=== PATIENT | male | born 1990 ===

== ENCOUNTER 2018-07-31 07:23 | Observation (INO) | payer OTHER ==
[2018-07-31 07:25] VITALS: BMI 27.3
--- NOTE | 2018-07-31 07:48 | C.PDOC ---
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 Chest pain is intermittent and pressure like, nonradiating, not associated with SOB, nausea/vomiting. Epigastric pain is constant. Patient admits to cocaine use last night at approx 12:00am. He denies any significant PMHx in himself or h/o cardiac disease in immediate family. Time Seen by Provider: 07/31/18 07:32 Chief Complaint (Nursing): Chest Pain History Per: Patient History/Exam Limitations: no limitations Onset/Duration Of Symptoms: Hrs Current Symptoms Are (Timing): Better Severity: Mild Quality: "Pain" Exacerbating Factors: denies: Deep Breathing, Exertion Past Medical History Reviewed: Historical Data, Nursing Documentation, Vital Signs Vital Signs: Last Vital Signs Temp 98.8 F 07/31/18 07:25 Pulse 106 H 07/31/18 07:25 Resp 18 07/31/18 07:25 BP 137/88 07/31/18 07:25 Pulse Ox 98 07/31/18 07:25 - Medical History PMH: No Chronic Diseases Family History: States: No Known Family Hx - Social History Hx Alcohol Use: No Hx Substance Use: Yes - Immunization History Hx Tetanus Toxoid Vaccination: No Hx Influenza Vaccination: No Hx Pneumococcal Vaccination: No Review Of Systems Constitutional: Negative for: Fever, Chills Cardiovascular: Positive for: Chest Pain. Negative for: Palpitations Respiratory: Negative for: Cough, Shortness of Breath Gastrointestinal: Positive for: Abdominal Pain. Negative for: Nausea, Vomiting, Diarrhea Neurological: Negative for: Headache, Dizziness Physical Exam - Physical Exam Appears: Well, Non-toxic, In Acute Distress (in mild pain) Skin: Normal Color, Warm, Dry, No Diaphoretic Eye(s): bilateral: Normal Inspection Oral Mucosa: Moist Chest: Symmetrical Cardiovascular: Rhythm Regular (mildly tachycardic ), No Murmur Respiratory: Normal Breath Sounds, No Rales, No Rhonchi, No Wheezing Gastrointestinal/Abdominal: Bowel Sounds, Soft, Tenderness ((+) mild epigastric TTP, (-) Neves's), No Guarding, No Rebound Extremity: Normal ROM, No Pedal Edema, No Calf Tenderness Pulses: Left Dorsalis Pedis: Normal, Right Dorsalis Pedis: Normal Neurological/Psych: Oriented x3 ED Course And Treatment ECG: Interpreted By Me, Viewed By Me (NSR 89 bpm, normal axis, no acute ST/T wave changes) O2 Sat by Pulse Oximetry: 98 (RA) Pulse Ox Interpretation: Normal Disposition - Disposition Forms: [facility] (Irish)
[2018-07-31 08:17] LABS: BASO # 0.1 K/uL (0.0-0.2); BASO % 0.6 % (0.0-2.0); EOS % 0.1 % (0.0-4.0); HEMOGLOBIN 15.4 g/dL (12.0-18.0); LYMPH # 1.2 K/uL (1.0-4.3); MEAN CELL VOLUME 88.1 fL (80.0-94.0); MEAN CORPUSCULAR HEMOGLOBIN 30.6 pg (27.0-31.0); MEAN CORPUSCULAR HGB CONC 34.7 g/dL (33.0-37.0); MEAN PLATELET VOLUME 8.1 fL (7.2-11.7); MONO # 0.7 K/uL (0.0-0.8); MONO % 7.4 % (0.0-10.0); NEUT # 6.9 K/uL (1.8-7.0); NEUT % 77.9 % (50.0-75.0); RBC 5.05 Mil/uL (4.40-5.90); RED CELL DISTRIBUTION WIDTH 13.3 % (11.5-14.5); WHITE BLOOD COUNT 8.9 K/uL (4.8-10.8)
[2018-07-31 08:30] LABS: INR 1.1; PROTHROMBIN TIME 12.4 SECONDS (9.7-12.2)
[2018-07-31 08:31] LABS: ALB/GLOB RATIO 1.6 (1.0-2.1); ALBUMIN 4.7 g/dL (3.5-5.0); ALT/SGPT 27 U/L (21-72); AST/SGOT 24 U/L (17-59); BLOOD UREA NITROGEN 10 mg/dL (9-20); CALCIUM 9.6 mg/dl (8.6-10.4); GFR NON-AFRICAN AMERICAN > 60
[2018-07-31 08:42] LABS: CK-MB 0.46 ng/mL (0.0-3.38)
[2018-07-31 09:43] LABS: URINE BILIRUBIN NEGATIVE (NEGATIVE); URINE BLOOD NEGATIVE (NEGATIVE); URINE CLARITY Clear (Clear); URINE COLOR Yellow (YELLOW); URINE GLUCOSE (UA) NORMAL (Normal); URINE LEUKOCYTE ESTERASE NEG Leu/uL (Negative); URINE PROTEIN NEGATIVE (NEGATIVE); URINE UROBILINOGEN NORMAL mg/dL (0.2-1.0)
[2018-07-31 09:44] LABS: LIPASE 183 U/L (23-300)
[2018-07-31 09:53] LABS: B-TYPE NATRIURETIC PEPTIDE 37.8 pg/mL (0-450)
[2018-07-31 09:58] LABS: BARBITURATES, UR NEGATIVE (NEGATIVE); BENZODIAZEPINES, UR NEGATIVE (NEGATIVE); OPIATES, UR NEGATIVE (NEGATIVE); PHENCYCLIDINE, UR NEGATIVE (NEGATIVE)
--- NOTE | 2018-07-31 09:58 | CP.PCM.HP ---
<Valencia León - Last Filed: 07/31/18 12:06> History of Present Illness - History of Present Illness History of Present Illness: PGY-1 Valencia León D.O. H&P for Dr. Mcdermott's service: Patient is a 28 yo male with no known PMH who presents with chest pressure and epigastric pain after using cocaine. Patient states that he uses cocaine almost daily after work. He used it around midnight. Then around 5 AM, he felt chest pressure and stomach pain. He took a shower, and the pain subsided somewhat. He then walked around but the pain persisted, so he walked to the ED. He says after receiving medicine in the ED, the chest pressure resolved. Currently, he still has epigastric pain 4/10, increased with palpation. Abdominal pain is not worsened by food. Patient states this has ever happened before. Denies diaphoresis, palpitations, SOB, N/V/D/C. He denies drinking alcohol last night. PMH: denies PSH: denies Meds: denies All: NKA FH: denies history of heart disease, HTN, HLD, drug use SH: cocaine almost daily for 2-3 months, 3 cigarettes/day x3 years, 6 beers/week, lives with a friend, works as a cook, has 2 children (6, 9 yo) PMD: none Present on Admission - Present on Admission Any Indicators Present on Admission: No History of DVT/PE: No History of Uncontrolled Diabetes: No Urinary Catheter: No Decubitus Ulcer Present: No History Surgical Site Infection Following: None Review of Systems - Constitutional Constitutional: absent: Chills, Fever, Headache, Weakness - EENT Eyes: absent: Change in Vision Ears: absent: Dizziness Nose/Mouth/Throat: absent: Nasal Congestion, Sore Throat - Cardiovascular Cardiovascular: absent: Chest Pain, Diaphoresis, Dyspnea, Palpitations - Respiratory Respiratory: absent: Cough, Dyspnea - Gastrointestinal Gastrointestinal: Abdominal Pain. absent: Constipation, Diarrhea, Nausea, Vomiting - Genitourinary Genitourinary: absent: Dysuria, Hematuria - Musculoskeletal Musculoskeletal: absent: Muscle Weakness, Numbness, Tingling - Integumentary Integumentary: absent: Lesions, Pruritus, Rash - Neurological Neurological: absent: Dizziness, Focal Weakness, Paresthesias, Syncope, Tremor, Vertigo - Psychiatric Psychiatric: absent: Anxiety, Depression, Suicidal Ideation - Endocrine Endocrine: absent: Fatigue, Polydipsia, Polyuria - Hematologic/Lymphatic Hematologic: absent: Easy Bleeding, Easy Bruising, Lymphadenopathy Past Patient History - Past Social History Smoking Status: Heavy Smoker > 10 Cigarettes Daily - PSYCHIATRIC Hx Substance Use: Yes - SURGICAL HISTORY Hx Surgeries: No - ANESTHESIA Hx Anesthesia: No Meds Allergies/Adverse Reactions: Allergies Allergy/AdvReac Type Severity Reaction Status Date / Time No Known Allergies Allergy Verified 07/31/18 07:25 Physical Exam - Constitutional Appears: Non-toxic, No Acute Distress - Head Exam Head Exam: ATRAUMATIC, NORMAL INSPECTION - Eye Exam Eye Exam: EOMI, Normal appearance, PERRL - ENT Exam ENT Exam: Mucous Membranes Dry - Neck Exam Neck exam: Positive for: Normal Inspection - Respiratory Exam Respiratory Exam: Clear to Auscultation Bilateral, NORMAL BREATHING PATTERN. absent: Respiratory Distress - Cardiovascular Exam Cardiovascular Exam: RRR, +S1, +S2. absent: Systolic Murmur - GI/Abdominal Exam GI & Abdominal Exam: Normal Bowel Sounds, Soft, Tenderness (epigastric). absent: Distended, Rebound Additional comments: negative Neves's sign - Extremities Exam Extremities exam: Positive for: normal inspection, pedal pulses present. Negative for: pedal edema, tenderness - Back Exam Back exam: NORMAL INSPECTION. absent: tenderness - Neurological Exam Neurological exam: Alert, CN II-XII Intact, Oriented x3 - Psychiatric Exam Psychiatric exam: Normal Affect, Normal Mood - Skin Skin Exam: Diaphoretic, Normal Color, Warm Results - Vital Signs Recent Vital Signs: Last Vital Signs Temp 98.8 F 07/31/18 07:25 Pulse 83 07/31/18 08:40 Resp 15 07/31/18 08:40 BP 130/76 07/31/18 08:40 Pulse Ox 98 07/31/18 08:40 - Labs Result Diagrams: 07/31/18 08:14 07/31/18 08:14 Labs: Laboratory Results - last 24 hr 07/31/18 07/31/18 07/31/18 08:14 08:14 08:14 WBC 8.9 RBC 5.05 Hgb 15.4 Hct 44.5 MCV 88.1 MCH 30.6 MCHC 34.7 RDW 13.3 Plt Count 263 MPV 8.1 Neut % (Auto) 77.9 H Lymph % (Auto) 14.0 L [place] % (Auto) 7.4 Eos % (Auto) 0.1 Baso % (Auto) 0.6 Neut # (Auto) 6.9 Lymph # (Auto) 1.2 [place] # (Auto) 0.7 Eos # (Auto) 0.0 Baso # (Auto) 0.1 PT 12.4 H INR 1.1 APTT 34 Sodium 139 Potassium 3.9 Chloride 101 Carbon Dioxide 28 Anion Gap 14 BUN 10 Creatinine 0.9 Est GFR ( Amer) > 60 Est GFR (Non-Af Amer) > 60 Random Glucose 114 H Calcium 9.6 Total Bilirubin 0.9 AST 24 ALT 27 Alkaline Phosphatase 88 Total Creatine Kinase 70 CK-MB (Mass) 0.46 Troponin I < 0.0120 NT-Pro-B Natriuret Pep 37.8 Total Protein 7.6 Albumin 4.7 Globulin 2.9 Albumin/Globulin Ratio 1.6 Lipase 183 Urine Color Urine Clarity Urine pH Ur Specific [place] Urine Protein Urine Glucose (UA) Urine Ketones Urine Blood Urine Nitrate Urine Bilirubin Urine Urobilinogen Ur Leukocyte Esterase Urine WBC (Auto) Urine RBC (Auto) Alcohol, Quantitative < 10 07/31/18 09:28 WBC RBC Hgb Hct MCV MCH MCHC RDW Plt Count MPV Neut % (Auto) Lymph % (Auto) [place] % (Auto) Eos % (Auto) Baso % (Auto) Neut # (Auto) Lymph # (Auto) [place] # (Auto) Eos # (Auto) Baso # (Auto) PT INR APTT Sodium Potassium Chloride Carbon Dioxide Anion Gap BUN Creatinine Est GFR ( Amer) Est GFR (Non-Af Amer) Random Glucose Calcium Total Bilirubin AST ALT Alkaline Phosphatase Total Creatine Kinase CK-MB (Mass) Troponin I NT-Pro-B Natriuret Pep Total Protein Albumin Globulin Albumin/Globulin Ratio Lipase Urine Color Yellow Urine Clarity Clear Urine pH 6.0 Ur Specific [place] 1.010 Urine Protein Negative Urine Glucose (UA) Normal Urine Ketones Negative Urine Blood Negative Urine Nitrate Negative Urine Bilirubin Negative Urine Urobilinogen Normal Ur Leukocyte Esterase Neg Urine WBC (Auto) 1 Urine RBC (Auto) 1 Alcohol, Quantitative Assessment & Plan - Assessment and Plan (Free Text) Assessment: Patient is a 28 yo male with no known PMH who presents with chest pressure and epigastric pain after using cocaine. Initially trop negative but EKG showed early repolarization. Will monitor on telemetry. Plan: Chest pain- suspect 2/2 cocaine use - Received ASA, NG, Ativan, Pepcid in ED - EKG: early repolarization- trend Q6H - LANCE negative x1- trend Q6H - Monitor on telemetry - Vitals Q4H - A1c pending - BNP pending - TSH, free T4 pending - Lipase pending - Lipid panel in AM Polysubstance use disorder- cocaine, alcohol, tobacco - UDS positive for cocaine, BAL <10 - Discussed risks associated with each substance - Highly encouraged cessation - Referral to [facility] daily - [facility] referral Ppx: VTE: SCDs, ambulatory GI: not indicated Diet: Heart healthy, decaf Case discussed with attending, Dr. Mcdermott. <Shruti Mcdermott V - Last Filed: 07/31/18 19:03> Results - Vital Signs Recent Vital Signs: Last Vital Signs Temp 97.9 F 07/31/18 15:50 Pulse 71 07/31/18 15:50 Resp 18 07/31/18 15:50 BP 123/74 07/31/18 15:50 Pulse Ox 97 07/31/18 15:50 - Labs Result Diagrams: 07/31/18 08:14 07/31/18 08:14 Labs: Laboratory Results - last 24 hr 07/31/18 07/31/18 07/31/18 08:14 08:14 08:14 WBC 8.9 RBC 5.05 Hgb 15.4 Hct 44.5 MCV 88.1 MCH 30.6 MCHC 34.7 RDW 13.3 Plt Count 263 MPV 8.1 Neut % (Auto) 77.9 H Lymph % (Auto) 14.0 L [place] % (Auto) 7.4 Eos % (Auto) 0.1 Baso % (Auto) 0.6 Neut # (Auto) 6.9 Lymph # (Auto) 1.2 [place] # (Auto) 0.7 Eos # (Auto) 0.0 Baso # (Auto) 0.1 PT 12.4 H INR 1.1 APTT 34 D-Dimer, Quantitative Sodium 139 Potassium 3.9 Chloride 101 Carbon Dioxide 28 Anion Gap 14 BUN 10 Creatinine 0.9 Est GFR ( Amer) > 60 Est GFR (Non-Af Amer) > 60 Random Glucose 114 H Hemoglobin A1c Calcium 9.6 Total Bilirubin 0.9 AST 24 ALT 27 Alkaline Phosphatase 88 Total Creatine Kinase 70 CK-MB (Mass) 0.46 Troponin I < 0.0120 NT-Pro-B Natriuret Pep 37.8 Total Protein 7.6 Albumin 4.7 Globulin 2.9 Albumin/Globulin Ratio 1.6 Lipase 183 Free T4 TSH 3rd Generation Urine Color Urine Clarity Urine pH Ur Specific [place] Urine Protein Urine Glucose (UA) Urine Ketones Urine Blood Urine Nitrate Urine Bilirubin Urine Urobilinogen Ur Leukocyte Esterase Urine WBC (Auto) Urine RBC (Auto) Urine Opiates Screen Urine Methadone Screen Ur Barbiturates Screen Ur Phencyclidine Scrn Ur Amphetamines Screen U Benzodiazepines Scrn U Oth Cocaine Metabols U Cannabinoids Screen Alcohol, Quantitative < 10 07/31/18 07/31/18 07/31/18 09:28 09:28 10:12 WBC RBC Hgb Hct MCV MCH MCHC RDW Plt Count MPV Neut % (Auto) Lymph % (Auto) [place] % (Auto) Eos % (Auto) Baso % (Auto) Neut # (Auto) Lymph # (Auto) [place] # (Auto) Eos # (Auto) Baso # (Auto) PT INR APTT D-Dimer, Quantitative < 200 Sodium Potassium Chloride Carbon Dioxide Anion Gap BUN Creatinine Est GFR ( Amer) Est GFR (Non-Af Amer) Random Glucose Hemoglobin A1c Calcium Total Bilirubin AST ALT Alkaline Phosphatase Total Creatine Kinase CK-MB (Mass) Troponin I NT-Pro-B Natriuret Pep Total Protein Albumin Globulin Albumin/Globulin Ratio Lipase Free T4 TSH 3rd Generation Urine Color Yellow Urine Clarity Clear Urine pH 6.0 Ur Specific [place] 1.010 Urine Protein Negative Urine Glucose (UA) Normal Urine Ketones Negative Urine Blood Negative Urine Nitrate Negative Urine Bilirubin Negative Urine Urobilinogen Normal Ur Leukocyte Esterase Neg Urine WBC (Auto) 1 Urine RBC (Auto) 1 Urine Opiates Screen Negative Urine Methadone Screen Negative Ur Barbiturates Screen Negative Ur Phencyclidine Scrn Negative Ur Amphetamines Screen Negative U Benzodiazepines Scrn Negative U Oth Cocaine Metabols Positive H U Cannabinoids Screen Negative Alcohol, Quantitative 07/31/18 07/31/18 07/31/18 11:52 11:52 12:12 WBC RBC Hgb Hct MCV MCH MCHC RDW Plt Count MPV Neut % (Auto) Lymph % (Auto) [place] % (Auto) Eos % (Auto) Baso % (Auto) Neut # (Auto) Lymph # (Auto) [place] # (Auto) Eos # (Auto) Baso # (Auto) PT INR APTT D-Dimer, Quantitative Sodium Potassium Chloride Carbon Dioxide Anion Gap BUN Creatinine Est GFR ( Amer) Est GFR (Non-Af Amer) Random Glucose Hemoglobin A1c 5.5 Calcium Total Bilirubin AST ALT Alkaline Phosphatase Total Creatine Kinase CK-MB (Mass) Troponin I NT-Pro-B Natriuret Pep Total Protein Albumin Globulin Albumin/Globulin Ratio Lipase Free T4 0.90 TSH 3rd Generation 1.47 Urine Color Urine Clarity Urine pH Ur Specific [place] Urine Protein Urine Glucose (UA) Urine Ketones Urine Blood Urine Nitrate Urine Bilirubin Urine Urobilinogen Ur Leukocyte Esterase Urine WBC (Auto) Urine RBC (Auto) Urine Opiates Screen Urine Methadone Screen Ur Barbiturates Screen Ur Phencyclidine Scrn Ur Amphetamines Screen U Benzodiazepines Scrn U Oth Cocaine Metabols U Cannabinoids Screen Alcohol, Quantitative 07/31/18 15:58 WBC RBC Hgb Hct MCV MCH MCHC RDW Plt Count MPV Neut % (Auto) Lymph % (Auto) [place] % (Auto) Eos % (Auto) Baso % (Auto) Neut # (Auto) Lymph # (Auto) [place] # (Auto) Eos # (Auto) Baso # (Auto) PT INR APTT D-Dimer, Quantitative Sodium Potassium Chloride Carbon Dioxide Anion Gap BUN Creatinine Est GFR ( Amer) Est GFR (Non-Af Amer) Random Glucose Hemoglobin A1c Calcium Total Bilirubin AST ALT Alkaline Phosphatase Total Creatine Kinase 56 CK-MB (Mass) 0.28 Troponin I < 0.0120 NT-Pro-B Natriuret Pep Total Protein Albumin Globulin Albumin/Globulin Ratio Lipase Free T4 TSH 3rd Generation Urine Color Urine Clarity Urine pH Ur Specific [place] Urine Protein Urine Glucose (UA) Urine Ketones Urine Blood Urine Nitrate Urine Bilirubin Urine Urobilinogen Ur Leukocyte Esterase Urine WBC (Auto) Urine RBC (Auto) Urine Opiates Screen Urine Methadone Screen Ur Barbiturates Screen Ur Phencyclidine Scrn Ur Amphetamines Screen U Benzodiazepines Scrn U Oth Cocaine Metabols U Cannabinoids Screen Alcohol, Quantitative Attending/Attestation - Attestation I have personally seen and examined this patient.: Yes I have fully participated in the care of the patient.: Yes I have reviewed all pertinent clinical information: Yes Notes (Text): This is a 28-year-old male with no prior medical history comes in for chest pain noted last use of cocaine about 1 AM this morning. Patient noted to be using cocaine for the past 3 months. 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 Chest pain at bedside has resolved in the ED received both aspirin, nitro sublingual as well as Pepcid for epigastric pain. Patient does not appear in any acute distress S1-S2 present regular rate belly is benign. Patient appears clinically dehydrated. We will monitor patient on telemetry follow cardiac enzymes check for any cardiac risk factors including A1c TSH disorder if abdominal pain worsens may consider further imaging. We will give some IV hydration over 24 hours if no acute changes possible discharge in the morning. 1. Chest pain Assessment/plan Monitor on telemetry Cardiac enzymes and EKG times 8 hours apart x3 sets Check A1c, TSH, UDS 2. Cocaine abuse Assessment/plan Counseled bedside Patient is aware of cardiac arrhythmia and cardiac arrest following cocaine use 3. Tobacco abuse Assessment/plan Counseled bedside Sensation counts including premature aging aging cancer risk 4. Prophylactic measure Patient is amatory does not want chemical anticoagulation and Pepcid 20 mg p.o. twice daily GI prophylaxis As 100 cc/h for 24 hours
--- NOTE | 2018-07-31 10:40 | RAD ---
Date of service: 07/31/2018 PROCEDURE: CHEST RADIOGRAPH, 1 VIEW HISTORY: cp COMPARISON: None available. FINDINGS: LUNGS: Clear. PLEURA: No pneumothorax or pleural fluid seen. CARDIOVASCULAR: No aortic atherosclerotic calcification present. Normal. OSSEOUS STRUCTURES: No significant abnormalities. VISUALIZED UPPER ABDOMEN: Normal. OTHER FINDINGS: None. IMPRESSION: No active disease.
[2018-07-31] MEDS ORDERED: Sodium Chloride 0.9% 1,000 ML IV SCH ×2 (12:15→19:00)
[2018-07-31] MEDS ORDERED: Sodium Chloride 0.9% 1,000 ML ONE (12:41)
[2018-07-31 16:25] LABS: CK-MB 0.28 ng/mL (0.0-3.38)
[2018-07-31 21:41] LABS: CK-MB 0.25 ng/mL (0.0-3.38)
[2018-08-01 06:42] LABS: ALB/GLOB RATIO 1.5 (1.0-2.1); ALBUMIN 4.2 g/dL (3.5-5.0); ALT/SGPT 28 U/L (21-72); AST/SGOT 19 U/L (17-59); BLOOD UREA NITROGEN 9 mg/dL (9-20); CALCIUM 9.4 mg/dl (8.6-10.4); GFR NON-AFRICAN AMERICAN > 60; HDL CHOLESTEROL 41 mg/dL (30-70)
[2018-08-01 06:45] LABS: BASO # 0.1 K/uL (0.0-0.2); BASO % 0.7 % (0.0-2.0); EOS # 0.2 K/uL (0.0-0.7); EOS % 3.5 % (0.0-4.0); HEMOGLOBIN 15.9 g/dL (12.0-18.0); LYMPH # 2.3 K/uL (1.0-4.3); LYMPH % 32.9 % (20.0-40.0); MEAN CELL VOLUME 90.1 fL (80.0-94.0); MEAN CORPUSCULAR HEMOGLOBIN 29.8 pg (27.0-31.0); MEAN PLATELET VOLUME 8.1 fL (7.2-11.7); MONO # 0.6 K/uL (0.0-0.8); NEUT # 3.9 K/uL (1.8-7.0); NEUT % 54.9 % (50.0-75.0); NRBC % 0.1 % (0.0-2.0); RBC 5.34 Mil/uL (4.40-5.90); RED CELL DISTRIBUTION WIDTH 13.6 % (11.5-14.5); WHITE BLOOD COUNT 7.1 K/uL (4.8-10.8)
--- NOTE | 2018-08-01 06:47 | CP.PCM.DIS ---
<Valencia León - Last Filed: 08/01/18 08:17> Provider - Provider Date of Admission: 07/31/18 09:22 Attending physician: Shruti Mcdermott DO Primary care physician: none Consults: 07/31/18 12:09 Pastoral Care Referral Routine Comment: Physician Instructions: Reason For Exam: drug use, needs guidance Time Spent in preparation of Discharge (in minutes): 45 Diagnosis - Discharge Diagnosis (1) Chest pain not due to acute coronary syndrome Status: Resolved Priority: High (2) Cocaine use disorder Status: Chronic Priority: High (3) Alcohol use disorder Status: Chronic Priority: Medium (4) Tobacco use disorder Status: Chronic Priority: Medium Hospital Course - Lab Results Lab Results: Most Recent Lab Values WBC 8.9 K/uL (4.8-10.8) 07/31/18 08:14 RBC 5.05 Mil/uL (4.40-5.90) 07/31/18 08:14 Hgb 15.4 g/dL (12.0-18.0) 07/31/18 08:14 Hct 44.5 % (35.0-51.0) 07/31/18 08:14 MCV 88.1 fL (80.0-94.0) 07/31/18 08:14 MCH 30.6 pg (27.0-31.0) 07/31/18 08:14 MCHC 34.7 g/dL (33.0-37.0) 07/31/18 08:14 RDW 13.3 % (11.5-14.5) 07/31/18 08:14 Plt Count 263 K/uL (130-400) 07/31/18 08:14 MPV 8.1 fL (7.2-11.7) 07/31/18 08:14 Neut % (Auto) 77.9 % (50.0-75.0) H 07/31/18 08:14 Lymph % (Auto) 14.0 % (20.0-40.0) L 07/31/18 08:14 [place] % (Auto) 7.4 % (0.0-10.0) 07/31/18 08:14 Eos % (Auto) 0.1 % (0.0-4.0) 07/31/18 08:14 Baso % (Auto) 0.6 % (0.0-2.0) 07/31/18 08:14 Neut # (Auto) 6.9 K/uL (1.8-7.0) 07/31/18 08:14 Lymph # (Auto) 1.2 K/uL (1.0-4.3) 07/31/18 08:14 [place] # (Auto) 0.7 K/uL (0.0-0.8) 07/31/18 08:14 Eos # (Auto) 0.0 K/uL (0.0-0.7) 07/31/18 08:14 Baso # (Auto) 0.1 K/uL (0.0-0.2) 07/31/18 08:14 PT 12.4 SECONDS (9.7-12.2) H 07/31/18 08:14 INR 1.1 07/31/18 08:14 APTT 34 SECONDS (21-34) 07/31/18 08:14 D-Dimer, Quantitative < 200 ng/mlDDU (0-243) 07/31/18 10:12 Sodium 139 mmol/L (132-148) 08/01/18 06:22 Potassium 4.3 mmol/L (3.6-5.2) 08/01/18 06:22 Chloride 103 mmol/L (98-107) 08/01/18 06:22 Carbon Dioxide 32 mmol/L (22-30) H 08/01/18 06:22 Anion Gap 9 (10-20) L 08/01/18 06:22 BUN 9 mg/dL (9-20) 08/01/18 06:22 Creatinine 1.2 mg/dL (0.8-1.5) 08/01/18 06:22 Est GFR ( Amer) > 60 08/01/18 06:22 Est GFR (Non-Af Amer) > 60 08/01/18 06:22 Random Glucose 90 mg/dL (75-110) D 08/01/18 06:22 Hemoglobin A1c 5.5 % (4.2-6.5) 07/31/18 11:52 Calcium 9.4 mg/dl (8.6-10.4) 08/01/18 06:22 Phosphorus 4.2 mg/dL (2.5-4.5) 08/01/18 06:22 Magnesium 2.3 mg/dL (1.6-2.3) 08/01/18 06:22 Total Bilirubin 1.8 mg/dL (0.2-1.3) H 08/01/18 06:22 AST 19 U/L (17-59) 08/01/18 06:22 ALT 28 U/L (21-72) 08/01/18 06:22 Alkaline Phosphatase 68 U/L (38-126) 08/01/18 06:22 Total Creatine Kinase 55 U/L (55-170) 07/31/18 21:13 CK-MB (Mass) 0.25 ng/mL (0.0-3.38) 07/31/18 21:13 Troponin I < 0.0120 ng/mL (0.00-0.120) 07/31/18 21:13 NT-Pro-B Natriuret Pep 37.8 pg/mL (0-450) 07/31/18 08:14 Total Protein 7.0 g/dL (6.3-8.3) 08/01/18 06:22 Albumin 4.2 g/dL (3.5-5.0) 08/01/18 06:22 Globulin 2.8 gm/dL (2.2-3.9) 08/01/18 06:22 Albumin/Globulin Ratio 1.5 (1.0-2.1) 08/01/18 06:22 Triglycerides 97 mg/dL (0-149) 08/01/18 06:22 Cholesterol 196 mg/dL (0-199) 08/01/18 06:22 HDL Cholesterol 41 mg/dL (30-70) 08/01/18 06:22 Lipase 183 U/L (23-300) 07/31/18 08:14 Free T4 0.90 ng/dL (0.78-2.19) 07/31/18 11:52 TSH 3rd Generation 1.47 mIU/L (0.46-4.68) 07/31/18 12:12 Urine Color Yellow (YELLOW) 07/31/18 09:28 Urine Clarity Clear (Clear) 07/31/18 09:28 Urine pH 6.0 (5.0-8.0) 07/31/18 09:28 Ur Specific [place] 1.010 (1.003-1.030) 03/31/19 09:28 Urine Protein Negative mg/dL (NEGATIVE) 07/31/18 09:28 Urine Glucose (UA) Normal mg/dL (Normal) 07/31/18 09:28 Urine Ketones Negative mg/dL (NEGATIVE) 07/31/18 09:28 Urine Blood Negative (NEGATIVE) 07/31/18 09:28 Urine Nitrate Negative (NEGATIVE) 07/31/18 09:28 Urine Bilirubin Negative (NEGATIVE) 07/31/18 09:28 Urine Urobilinogen Normal mg/dL (0.2-1.0) 07/31/18 09:28 Ur Leukocyte Esterase Neg [place]/uL (Negative) 07/31/18 09:28 Urine WBC (Auto) 1 /hpf (0-5) 07/31/18 09:28 Urine RBC (Auto) 1 /hpf (0-3) 07/31/18 09:28 Urine Opiates Screen Negative (NEGATIVE) 07/31/18 09:28 Urine Methadone Screen Negative (NEGATIVE) 07/31/18 09:28 Ur Barbiturates Screen Negative (NEGATIVE) 07/31/18 09:28 Ur Phencyclidine Scrn Negative (NEGATIVE) 07/31/18 09:28 Ur Amphetamines Screen Negative (NEGATIVE) 07/31/18 09:28 U Benzodiazepines Scrn Negative (NEGATIVE) 07/31/18 09:28 U Oth Cocaine Metabols Positive (NEGATIVE) H 07/31/18 09:28 U Cannabinoids Screen Negative (NEGATIVE) 07/31/18 09:28 Alcohol, Quantitative < 10 mg/dl (0-10) 07/31/18 08:14 - Hospital Course Hospital Course: Patient is a 28 yo male with no known PMH who presents with chest pressure and epigastric pain after using cocaine. Patient states that he uses cocaine almost daily after work. He used it around midnight. Then around 5 AM, he felt chest pressure and stomach pain. He took a shower, and the pain subsided somewhat. He then walked around but the pain persisted, so he walked to the ED. He says after receiving medicine in the ED, the chest pressure resolved. Currently, he still has epigastric pain 4/10, increased with palpation. Abdominal pain is not worsened by food. Patient states this has ever happened before. Denies diaphoresis, palpitations, SOB, N/V/D/C. He denies drinking alcohol last night. Patient was admitted to telemetry unit for chest pain to rule out acute coronary syndrome. UDS was positive for cocaine. Blood alcohol was undetectable. No events were observed on telemetry. Chest pain did not return and epigastric pain resolved. LANCE negative x3. Initial EKG showed early repolarization. Subsequent 2 EKGs showed no significant changes. CXR was negative for acute pathology or cardiomegaly. A1c 5.5. TSH and free T4 wnl. BNP wnl. LDL was mildly elevated at 148- rest of lipid panel within normal limits. Upon discharge, patient denies pain and said he felt back to his baseline health. Vitals and labs were stable. He was strongly counseled on drug, alcohol, and tobacco cessation. Risks were discussed, and patient was provided with resources to quit. Patient ill follow-up at the [facility] as he does not have a PMD. Discharge Exam - Head Exam Head Exam: ATRAUMATIC, NORMAL INSPECTION - Eye Exam Eye Exam: EOMI, Normal appearance, PERRL - ENT Exam ENT Exam: Mucous Membranes Moist - Neck Exam Neck exam: Normal Inspection - Respiratory Exam Respiratory Exam: Clear to PA & Lateral, NORMAL BREATHING PATTERN, UNREMARKABLE - Cardiovascular Exam Cardiovascular Exam: RRR, +S1, +S2 - GI/Abdominal Exam GI & Abdominal Exam: Normal Bowel Sounds, Soft, Unremarkable. absent: Tenderness - Extremities Exam Extremities exam: normal inspection, pedal pulses present - Back Exam Back exam: NORMAL INSPECTION - Neurological Exam Neurological exam: Alert, CN II-XII Intact, Normal Gait, Oriented x3 - Psychiatric Exam Psychiatric exam: Normal Affect, Normal Mood - Skin Skin Exam: Dry, Intact, Normal Color, Warm Discharge Plan - Follow Up Plan Condition: GOOD Disposition: HOME/ ROUTINE Patient education suggested?: Yes Instructions: Chest Pain That Is Not Caused by the Heart (DC), Drug Abuse and Drug Addiction (DC) Additional Instructions: The following instructions were explained to patient and a copy will need to be provided to him in Nicaraguan and Icelandic: 1). Schedule follow up with [facility] located on Floor [address] of [facility] at [address] [place] [address] in [place], [place]. This clinic will have physicians that can become your primary health care provider. Phone number to make an appointment is [phone]. 2). Call [place] Quitline at [phone] for help in your area to help you to stop smoking. 3). Call Narcotic Anonymous at [phone] for help in your area to help you to stop using Cocaine. 4). Please take care and be well. Las siguientes instrucciones se explicaron al paciente y se deber proporcionar charles copia en ingls y espaol: 1). Jacinda un seguimiento del horario con [facility] [address] en el [address] del [facility] [address] [facility] [place], [place]. Esta clnica tendr mdicos que pueden convertirse en edwards proveedor de atencin primaria de joaquin. El nmero de telfono para hacer charles juliette es [phone]. 2). Llame a [place] Quitline al [phone] para obtener ayuda en edwards matti para ayudarlo a dejar de fumar. 3). Llame a Narcotic Anonymous al [phone] para obtener ayuda en edwards matti para ayudarlo a dejar de usar la cocana. 4). Por favor cuidate y estar david. Referrals: [facility] at [facility] [Outside] <Matias Rome - Last Filed: 08/01/18 14:32> Provider - Provider Date of Admission: 07/31/18 09:22 Attending physician: Shruti Mcdermott DO Consults: 07/31/18 12:09 Pastoral Care Referral Routine Comment: Physician Instructions: Reason For Exam: drug use, needs guidance Hospital Course - Lab Results Lab Results: Most Recent Lab Values WBC 7.1 K/uL (4.8-10.8) 08/01/18 06:22 RBC 5.34 Mil/uL (4.40-5.90) 08/01/18 06:22 Hgb 15.9 g/dL (12.0-18.0) 08/01/18 06:22 Hct 48.1 % (35.0-51.0) 08/01/18 06:22 MCV 90.1 fL (80.0-94.0) D 08/01/18 06:22 MCH 29.8 pg (27.0-31.0) 08/01/18 06:22 MCHC 33.0 g/dL (33.0-37.0) 08/01/18 06:22 RDW 13.6 % (11.5-14.5) 08/01/18 06:22 Plt Count 259 K/uL (130-400) 08/01/18 06:22 MPV 8.1 fL (7.2-11.7) 08/01/18 06:22 Neut % (Auto) 54.9 % (50.0-75.0) 08/01/18 06:22 Lymph % (Auto) 32.9 % (20.0-40.0) 08/01/18 06:22 [place] % (Auto) 8.0 % (0.0-10.0) 08/01/18 06:22 Eos % (Auto) 3.5 % (0.0-4.0) 08/01/18 06:22 Baso % (Auto) 0.7 % (0.0-2.0) 08/01/18 06:22 Neut # (Auto) 3.9 K/uL (1.8-7.0) 08/01/18 06:22 Lymph # (Auto) 2.3 K/uL (1.0-4.3) 08/01/18 06:22 [place] # (Auto) 0.6 K/uL (0.0-0.8) 08/01/18 06:22 Eos # (Auto) 0.2 K/uL (0.0-0.7) 08/01/18 06:22 Baso # (Auto) 0.1 K/uL (0.0-0.2) 08/01/18 06:22 PT 12.4 SECONDS (9.7-12.2) H 07/31/18 08:14 INR 1.1 07/31/18 08:14 APTT 34 SECONDS (21-34) 07/31/18 08:14 D-Dimer, Quantitative < 200 ng/mlDDU (0-243) 07/31/18 10:12 Sodium 139 mmol/L (132-148) 08/01/18 06:22 Potassium 4.3 mmol/L (3.6-5.2) 08/01/18 06:22 Chloride 103 mmol/L (98-107) 08/01/18 06:22 Carbon Dioxide 32 mmol/L (22-30) H 08/01/18 06:22 Anion Gap 9 (10-20) L 08/01/18 06:22 BUN 9 mg/dL (9-20) 08/01/18 06:22 Creatinine 1.2 mg/dL (0.8-1.5) 08/01/18 06:22 Est GFR ( Amer) > 60 08/01/18 06:22 Est GFR (Non-Af Amer) > 60 08/01/18 06:22 Random Glucose 90 mg/dL (75-110) D 08/01/18 06:22 Hemoglobin A1c 5.5 % (4.2-6.5) 07/31/18 11:52 Calcium 9.4 mg/dl (8.6-10.4) 08/01/18 06:22 Phosphorus 4.2 mg/dL (2.5-4.5) 08/01/18 06:22 Magnesium 2.3 mg/dL (1.6-2.3) 08/01/18 06:22 Total Bilirubin 1.8 mg/dL (0.2-1.3) H 08/01/18 06:22 AST 19 U/L (17-59) 08/01/18 06:22 ALT 28 U/L (21-72) 08/01/18 06:22 Alkaline Phosphatase 68 U/L (38-126) 08/01/18 06:22 Total Creatine Kinase 55 U/L (55-170) 07/31/18 21:13 CK-MB (Mass) 0.25 ng/mL (0.0-3.38) 07/31/18 21:13 Troponin I < 0.0120 ng/mL (0.00-0.120) 07/31/18 21:13 NT-Pro-B Natriuret Pep 37.8 pg/mL (0-450) 07/31/18 08:14 Total Protein 7.0 g/dL (6.3-8.3) 08/01/18 06:22 Albumin 4.2 g/dL (3.5-5.0) 08/01/18 06:22 Globulin 2.8 gm/dL (2.2-3.9) 08/01/18 06:22 Albumin/Globulin Ratio 1.5 (1.0-2.1) 08/01/18 06:22 Triglycerides 97 mg/dL (0-149) 08/01/18 06:22 Cholesterol 196 mg/dL (0-199) 08/01/18 06:22 LDL Cholesterol Direct 148 mg/dL (0-129) H 08/01/18 06:22 HDL Cholesterol 41 mg/dL (30-70) 08/01/18 06:22 Lipase 183 U/L (23-300) 07/31/18 08:14 Free T4 0.90 ng/dL (0.78-2.19) 07/31/18 11:52 TSH 3rd Generation 1.47 mIU/L (0.46-4.68) 07/31/18 12:12 Urine Color Yellow (YELLOW) 07/31/18 09:28 Urine Clarity Clear (Clear) 07/31/18 09:28 Urine pH 6.0 (5.0-8.0) 07/31/18 09:28 Ur Specific [place] 1.010 (1.003-1.030) 07/31/18 09:28 Urine Protein Negative mg/dL (NEGATIVE) 07/31/18 09:28 Urine Glucose (UA) Normal mg/dL (Normal) 07/31/18 09:28 Urine Ketones Negative mg/dL (NEGATIVE) 07/31/18 09:28 Urine Blood Negative (NEGATIVE) 07/31/18 09:28 Urine Nitrate Negative (NEGATIVE) 07/31/18 09:28 Urine Bilirubin Negative (NEGATIVE) 07/31/18 09:28 Urine Urobilinogen Normal mg/dL (0.2-1.0) 07/31/18 09:28 Ur Leukocyte Esterase Neg [place]/uL (Negative) 07/31/18 09:28 Urine WBC (Auto) 1 /hpf (0-5) 07/31/18 09:28 Urine RBC (Auto) 1 /hpf (0-3) 07/31/18 09:28 Urine Opiates Screen Negative (NEGATIVE) 07/31/18 09:28 Urine Methadone Screen Negative (NEGATIVE) 07/31/18 09:28 Ur Barbiturates Screen Negative (NEGATIVE) 07/31/18 09:28 Ur Phencyclidine Scrn Negative (NEGATIVE) 07/31/18 09:28 Ur Amphetamines Screen Negative (NEGATIVE) 07/31/18 09:28 U Benzodiazepines Scrn Negative (NEGATIVE) 07/31/18 09:28 U Oth Cocaine Metabols Positive (NEGATIVE) H 07/31/18 09:28 U Cannabinoids Screen Negative (NEGATIVE) 07/31/18 09:28 Alcohol, Quantitative < 10 mg/dl (0-10) 07/31/18 08:14 Attending/Attestation - Attestation I have personally seen and examined this patient.: Yes I have fully participated in the care of the patient.: Yes I have reviewed all pertinent clinical information, including history, physical exam and plan: Yes Notes (Text): 08/01/18 14:30 Please also see my progress note 08/01/18. Care of this patient was gone over with resident Dr León. Matias Rome D.O.
[2018-08-01 06:52] LABS: LDL CHOLESTEROL 148 mg/dL (0-129)
[2018-08-01 07:50] VITALS: PULSE 71
[2018-08-01 08:00] VITALS: BP 121/77; RESP 20; TEMP 98.1; O2SAT 100
--- NOTE | 2018-08-01 08:10 | CP.PCM.PN ---
Subjective - Date & Time of Evaluation Date of Evaluation: 08/01/18 Time of Evaluation: 07:45 - Subjective Subjective: Hospitalist Progress Note Patient was seen and examined at 7:45 AM 08/01/18. Pleasant 28 year old male (Sammarinese and Greek speaking) who was admitted for evaluation of chest pain/epigastric pain after consuming cocaine. Troponin x 3 have been negative. Chest X ray shows no active disease. EKG shows J point elevation in lead V2 and V3. Lipase and TSH are WNL. His presenting complaints have resolved and have not re-occurred. Upon FULL ROS: NO chest pain NO palpitations NO SOB/Cough/Wheezing NO dysphagia/odynophagia NO abdominal pain NO n/v/d/c NO burning/pain with urination NO new changes in vision NO new changes in hearing NO paresthesias NO headaches NO lightheadedness/dizziness NO edema Exam: General: No acute distress. Resting comfortably in bed. Conversing with me without difficulty in Sammarinese and Greek HEENT: NCA, EOMI, PERRLA, NO cervica/supraclavicular/submandibular lymphadeanopathy, NO thyromegaly, NO pharyngeal erythema/exudate, Nasal turbinates are moist/nonedematous/nonerythematous Cardio: NS1 and NS2, NO M/R/G Resp: CTA B/L, NO R/R/W GI: BSx4, Soft, NT, ND, NO HSM, NO guarding/rebound tenderness Ext: Pulses are strong and equal, Capillary Refill is 2 seconds, NO edema, NO discoloration, Normal temperature Neuro: CN II through XII are grossly intact Assessments: 1). Atypical Chest Pain Status: Resolved 2). Epigastric Pain Status: Resolved 3). Hx Cocaine Use Status: Chronic Counseled and informed that he will be provided with phone number to obtain help in his area 4). Hx Nicotine Use Status: Chronic Counseled and informed that he will be provided with phone number to obtain help in his area Vitals are stable Presenting complaints have resolved Patient is stable for discharge He stated that he does not have a primary physician. He was informed that he will be provided with information for our clinic at this hospital and he was instructed to follow up there to establish care. The following instructions were explained to patient and a copy will need to be provided to him in Greek and Sammarinese: 1). Schedule follow up with [facility] located on Floor [address] of [facility] at [address] [facility] in [place], [place]. This clinic will have physicians that can become your primary health care provider. Phone number to make an appointment is [phone]. 2). Call [place] Quitline at [phone] for help in your area to help you to stop smoking. 3). Call Narcotic Anonymous at [phone] for help in your area to help you to stop using Cocaine. 4). Please take care and be well. Matias Rome D.O. Objective - Vital Signs/Intake and Output Vital Signs (last 24 hours): Temp Pulse Resp BP Pulse Ox 98.8 F 71 18 121/71 99 08/01/18 01:00 08/01/18 07:30 08/01/18 01:00 08/01/18 01:00 08/01/18 01:00 - Medications Medications: Current Medications Famotidine (Pepcid) 20 mg PO BID NICOLE Sodium Chloride (Sodium Chloride 0.9%) 1,000 mls @ 100 mls/hr IV .Q10H NICOLE Stop: 08/24/18 19:01 Nicotine (Nicoderm Cq) 1 patch TD DAILY NICOLE Last Admin: 07/31/18 11:30 Dose: 1 patch - Labs Labs: 08/01/18 06:22 08/01/18 06:22 PT 12.4 SECONDS (9.7-12.2) H 07/31/18 08:14 INR 1.1 07/31/18 08:14 APTT 34 SECONDS (21-34) 07/31/18 08:14
== END 2018-08-01 11:49 | disposition home or self-care (01) ==
LOC: C.ER 07:23 → C.9E 09:22 → C.6T 13:00
PROVIDERS: ADMIT Hospitalist; ATTEND Hospitalist
DX: R07.89 Other chest pain (principal); F10.10 Alcohol abuse, uncomplicated; F14.10 Cocaine abuse, uncomplicated; Z72.0 Tobacco use
CPT/HCPCS: 36415; 71045; 80053; 80061; 80320; 80324; 80345; 80346; 80349; 80353; 80358; 80361; 81001; 82550; 82553; 83036; 83690; 83735; 83880; 83992; 84100; 84439; 84443; 84484; 85025; 85378; 85610; 85730; 96374; 96375; 99285; G0378; J2060; J7030